=== PATIENT | male | born 1990 | race Hispanic/Latino ===

== ENCOUNTER 2018-09-05 09:50 | Emergency (ER) | payer OTHER, SELFPAY ==
[2018-09-05] MEDS ORDERED: NA CHLORIDE 0.9% 1,000 ML ONE (10:40)
[2018-09-05] MEDS ORDERED: ONDANSETRON 4 MG/2 ML VIAL ONE (10:40)
[2018-09-05 10:58] LABS: Absolute Lymphocytes (CBC) 1.2 K/uL (0.7-4.9); Absolute Monocytes 0.8 K/uL (0.1-1.3); Absolute Neutrophil 4.9 K/uL (1.8-8.0); Basophils % 0.3 % (0-1.3); Lymphocytes % 17.4 % (15.3-44.8); MPV 10.3 fL (7.6-11.3); Monocytes % 10.9 % (3.3-12.3); RBC Red Blood Cell Count 5.34 M/uL (4.33-5.43)
[2018-09-05 11:12] LABS: Albumin 3.8 g/dL (3.4-5.0); Bilirubin Direct 0.2 mg/dL (0-0.2); Bilirubin Total 0.7 mg/dL (0.2-1.0); Potassium 3.5 mmol/L (3.5-5.1); Protein, Total 7.4 g/dL (6.4-8.2)
--- NOTE | 2018-09-05 12:14 | RAD REPORT ---
EXAM DESCRIPTION: CT - Abdomen Pelvis W Contrast - 09/05/2018 11:44 am CLINICAL HISTORY: Persistent lower abdominal pain COMPARISON: None. TECHNIQUE: Biphasic, helical CT imaging of the abdomen and pelvis was performed following 100 ml non -ionic IV contrast. Oral contrast was given. All CT scans are performed using dose optimization technique as appropriate and may include automated exposure control or mA/KV adjustment according to patient size. FINDINGS: No suspicious findings in the lung bases. The liver, spleen, and pancreas show no suspicious findings. Gallbladder and biliary tree are also wi thout suspicious finding. Symmetric renal function is seen with no hydronephrosis or suspicious renal mass. No pyelonephritis o r acute parenchymal process. No bladder abnormalities. No adrenal abnormalities. No dilated bowel loops or bowel wall thickening. Appendix is normal. No free air, free fluid or infla mmatory stranding. No hernia, mass or bulky lymphadenopathy. No suspicious bony findings. IMPRESSION: Contrast enhanced CT abdomen and pelvis showing no significant or suspicious finding.
[2018-09-05 12:48] LABS: Urine Blood NEGATIVE (NEG); Urine Glucose NEGATIVE (NEG); Urine Protein NEGATIVE (NEG); Urine Specific Gravity <1.005 (1.005-1.030); Urine pH 5.5 (5.0-7.0)
--- NOTE | 2018-09-05 13:03 | ER ---
Nurse's Notes [facility] Name: Uriel Naranjo Age: 28 yrs Sex: Male : 1990 Arrival Date: 09/05/2018 Time: 09:52 Bed 5 Private MD: Diagnosis: Vomiting;Diarrhea, unspecified Presentation: 09/05 10:03 Presenting complaint: Patient states: abd cramping, N/V/D x 6 days. Pt states, "I think ss I've got food poisoning. I've had it before, but it's never lasted this long.". Transition of care: patient was not received from another setting of care. Onset of symptoms was August 30, 2018. Risk Assessment: Do you want to hurt yourself or someone else? Patient reports no desire to harm self or others. Initial Sepsis Screen: Does the patient meet any 2 criteria? No. Patient's initial sepsis screen is negative. Does the patient have a suspected source of infection? No. Patient's initial sepsis screen is negative. Care prior to arrival: None. 10:03 Method Of Arrival: Ambulatory ss 10:03 Acuity: CLAUDIA 3 ss Historical: - Allergies: 10:05 No Known Allergies; ss - Home Meds: 10:05 None [Active]; ss - PMHx: 10:05 None; ss - PSHx: 10:05 None; ss - Immunization history:: Adult Immunizations up to date. - Social history:: Smoking status: Patient/guardian denies using tobacco. - Ebola Screening: : Patient denies exposure to infectious person Patient denies travel to an Ebola-affected area in the 21 days before illness onset. Screenin:39 Abuse screen: Denies threats or abuse. Denies injuries from another. Nutritional hb screening: No deficits noted. Tuberculosis screening: No symptoms or risk factors identified. Fall Risk None identified. Assessment: 10:39 General: Appears in no apparent distress. Behavior is calm, cooperative. Pain: Pain hb currently is 7 out of 10 on a pain scale. Neuro: Level of Consciousness is awake, alert, obeys commands, Oriented to person, place, time, situation. Cardiovascular: Heart tones S1 S2 present Capillary refill < 3 seconds Patient's skin is warm and dry. Respiratory: Airway is patent Trachea midline Respiratory effort is even, unlabored, Respiratory pattern is regular, symmetrical, Breath sounds are clear bilaterally. GI: Abdomen is non-distended, Bowel sounds present X 4 quads. Reports lower abdominal pain, upper abdominal pain, nausea. : No signs and/or symptoms were reported regarding the genitourinary system. EENT: No signs and/or symptoms were reported regarding the EENT system. Derm: Skin is intact, is healthy with good turgor, Skin is pink, warm \\T\\ dry. Musculoskeletal: No signs and/or symptoms reported regarding the musculoskeletal system. 11:30 Reassessment: Patient appears in no apparent distress at this time. Patient and/or hb family updated on plan of care and expected duration. Pain level reassessed. Patient is alert, oriented x 3, equal unlabored respirations, skin warm/dry/pink. Vital Signs: 10:05 BP 166 / 113; Pulse 82; Resp 16; Temp 99.0(O); Pulse Ox 100% on R/A; Weight 95.25 kg; ss Height 5 ft. 9 in. (175.26 cm); Pain 7/10; 10:05 Body Mass Index 31.01 (95.25 kg, 175.26 cm) ED Course: 09:52 Patient arrived in ED. as 10:02 Lucien Saucedo PA is PHCP. jmm 10:02 Abiodun Whatley MD is Attending Physician. jm 10:04 Triage completed. ss 10:05 Arm band placed on right wrist. ss 10:25 Kaylen Herrera, RN is Primary Nurse. hb 10:39 Patient has correct armband on for positive identification. Placed in gown. Bed in low hb position. Call light in reach. Side rails up X 1. 10:39 Inserted saline lock: 20 gauge in right forearm, using aseptic technique. Blood hb collected. 11:45 CT Abd/Pelvis - W/Contrast In Process Unspecified. EDMS 13:01 Kevin Salgado MD is Referral Physician. [facility] 13:35 No provider procedures requiring assistance completed. IV discontinued, intact, hb bleeding controlled, No redness/swelling at site. Pressure dressing applied. Administered Medications: 10:38 Drug: NS 0.9% 1000 ml Route: IV; Rate: 1 bolus; Site: right forearm; hb 11:47 Follow up: Response: No adverse reaction; IV Status: Completed infusion hb 10:38 Drug: Zofran 4 mg Route: IVP; Site: right forearm; hb 11:20 Follow up: Response: No adverse reaction hb Outcome: 13:02 Discharge ordered by MD. campos 13:35 Discharged to home ambulatory. hb 13:35 Condition: stable 13:35 Discharge instructions given to patient, Instructed on discharge instructions, follow up and referral plans. medication usage, Demonstrated understanding of instructions, follow-up care, medications, Prescriptions given X 2. 13:36 Patient left the ED. hb Signatures: Dispatcher [employer] EDMS Lucien Saucedo PA PA jmm Martinez, Amelia as Smirch, Shelby, RN RN Kaylen Hernandez RN RN hb
--- NOTE | 2018-09-05 13:03 | EDPHYS ---
Physician Documentation [facility] Name: Uriel Naranjo Age: 28 yrs Sex: Male : 1990 Arrival Date: 09/05/2018 Time: 09:52 Bed 5 Private MD: ED Physician Abiodun Whatley HPI: 09/05 10:26 This 28 yrs old Male presents to ER via Ambulatory with complaints of jmm Nausea/Vomiting/Diarrhea, Abdominal Pain. 10:26 The patient presents to the emergency department with nausea, vomiting, diarrhea, jmm abdominal pain. Onset: The symptoms/episode began/occurred gradually, 5 day(s) ago. Possible causes: bad food exposure, street tacos. The symptoms are aggravated by nothing. The symptoms are alleviated by nothing. Associated signs and symptoms: Pertinent positives: abdominal pain, diarrhea, nausea, vomiting. Patient denies pmh or surgical history. Historical: - Allergies: 10:05 No Known Allergies; ss - Home Meds: 10:05 None [Active]; ss - PMHx: 10:05 None; ss - PSHx: 10:05 None; ss - Immunization history:: Adult Immunizations up to date. - Social history:: Smoking status: Patient/guardian denies using tobacco. - Ebola Screening: : Patient denies exposure to infectious person Patient denies travel to an Ebola-affected area in the 21 days before illness onset. ROS: 10:26 Constitutional: Negative for fever, chills, and weight loss, Cardiovascular: Negative jmm for chest pain, palpitations, and edema, Respiratory: Negative for shortness of breath, cough, wheezing, and pleuritic chest pain. 10:26 Abdomen/GI: Positive for abdominal pain, nausea and vomiting, diarrhea. 10:26 All other systems are negative. Exam: 10:26 Constitutional: This is a well developed, well nourished patient who is awake, alert, jmm and in no acute distress. Head/Face: atraumatic. Eyes: EOMI, no conjunctival erythema appreciated ENT: Moist Mucus Membranes Neck: Trachea midline, Supple Chest/axilla: Normal chest wall appearance and motion. Cardiovascular: Regular rate and rhythm. No edema appreciated Respiratory: Normal respirations, no respiratory distress appreciated 10:26 Abdomen/GI: Inspection: abdomen appears normal, Bowel sounds: normal, Palpation: soft, mild abdominal tenderness, in the left lower quadrant. 10:26 Back: ROM is normal. 10:26 Musculoskeletal/extremity: ROM: intact in all extremities. 10:26 Skin: Appearance: Color: normal in color. 10:26 Neuro: Orientation: is normal, Mentation: is normal, Memory: is normal. 10:26 Psych: Behavior/mood is pleasant, cooperative. Vital Signs: 10:05 BP 166 / 113; Pulse 82; Resp 16; Temp 99.0(O); Pulse Ox 100% on R/A; Weight 95.25 kg; ss Height 5 ft. 9 in. (175.26 cm); Pain 7/10; 10:05 Body Mass Index 31.01 (95.25 kg, 175.26 cm) ss MDM: 10:23 Patient medically screened. [facility] 13:00 Data reviewed: vital signs, nurses notes. Counseling: I had a detailed discussion with beth the patient and/or guardian regarding: the historical points, exam findings, and any diagnostic results supporting the discharge/admit diagnosis, lab results, radiology results, the need for outpatient follow up, to return to the emergency department if symptoms worsen or persist or if there are any questions or concerns that arise at home. ED course: Patient is alert and non toxic in appearance in the ED. i discussed with the patient the need to follow up with GI for further evaluation. Patient given early appendicitis return precautions. Patient can tolerate PO in the ED. . 09/05 10:24 Order name: Basic Metabolic Panel [facility] 09/05 10:24 Order name: CBC with Diff [facility] 09/05 10:24 Order name: Creatinine for Radiology; Complete Time: 11:27 [facility] 09/05 10:24 Order name: Hepatic Function [facility] 09/05 10:24 Order name: Lipase [facility] 09/05 10:24 Order name: Basic Metabolic Panel; Complete Time: 11:27 [facility] 09/05 10:24 Order name: IV Saline Lock; Complete Time: 10:39 [facility] 09/05 10:24 Order name: CT Abd/Pelvis - W/Contrast; Complete Time: 12:32 [facility] 09/05 10:24 Order name: CBC with Automated Diff; Complete Time: 11:27 [facility] 09/05 10:24 Order name: Liver (Hepatic) Function; Complete Time: 11:27 [facility] 09/05 10:24 Order name: Lipase; Complete Time: 11:27 [facility] 09/05 12:34 Order name: Urine Dipstick--Ancillary (enter results); Complete Time: 13:56 em1 09/05 10:24 Order name: Labs collected and sent; Complete Time: 10:39 [facility] 09/05 10:24 Order name: Urine Dipstick-Ancillary (obtain specimen); Complete Time: 12:34 [facility] 09/05 12:33 Order name: PO challenge; Complete Time: 12:45 [facility] Administered Medications: 10:38 Drug: NS 0.9% 1000 ml Route: IV; Rate: 1 bolus; Site: right forearm; hb 11:47 Follow up: Response: No adverse reaction; IV Status: Completed infusion hb 10:38 Drug: Zofran 4 mg Route: IVP; Site: right forearm; hb 11:20 Follow up: Response: No adverse reaction hb Disposition: 09/05/18 13:02 Discharged to Home. Impression: Vomiting, Diarrhea, unspecified. - Condition is Stable. - Discharge Instructions: Diarrhea, Adult, Nausea and Vomiting, Adult. - Prescriptions for Zofran ODT 4 mg Oral tablet,disintegrating - place 1 tablet by TRANSLINGUAL route every 4-6 hours; 20 tablet. Bentyl 20 mg Oral Tablet - take 1 tablet by ORAL route every 6 hours As needed; 20 tablet. - Medication Reconciliation Form, Thank You Letter, Antibiotic Education, Prescription Opioid Use, Work release form form. - Follow up: Kevin Salgado MD; When: 2 - 3 days; Reason: Recheck today's complaints, Continuance of care, Re-evaluation by your physician. Addendum: 09/06/2018 19:04 Co-signature as Attending Physician, Abiodun Whatley MD I agree with the assessment and k dr plan of care. Signatures: Dispatcher [employer] [facility] Abiodun Whatley MD MD kdr Mickail, Joel, PA PA [facility] Bonnie Carrera RN RN ss Baxter, Heather, RN RN Corrections: (The following items were deleted from the chart) 09/05 13:36 13:02 09/05/2018 13:02 Discharged to Home. Impression: Vomiting; Diarrhea, unspecified. hb Condition is Stable. Forms are Medication Reconciliation Form, Thank You Letter, Antibiotic Education, Prescription Opioid Use. Follow up: Kevin Salgado; When: 2 - 3 days; Reason: Recheck today's complaints, Continuance of care, Re-evaluation by your physician. beth
== END 2018-09-05 13:36 | disposition home or self-care (01) ==
LOC: ER 09:50
DX: R19.7 Diarrhea, unspecified (principal)
CPT/HCPCS: 36415; 74177; 80048; 80076; 81003; 83690; 85025; 96361; 96374; 99284; J2405; J7030; Q9967

== ENCOUNTER 2020-01-18 21:38 | Emergency (ER) | payer OTHER ==
[2020-01-18 23:14] LABS: Urine Blood NEGATIVE (NEG); Urine Glucose NEGATIVE (NEG); Urine Protein NEGATIVE (NEG); Urine Specific Gravity 1.025 (1.005-1.030); Urine pH 7.5 (5.0-7.0)
--- NOTE | 2020-01-18 23:36 | ER ---
Nurse's Notes [facility] Name: Uriel Naranjo Age: 29 yrs Sex: Male : 1990 Arrival Date: 01/18/2020 Time: 21:43 Bed 11 Private MD: Diagnosis: Hydrocele, unspecified Presentation: 01/17 22:01 Chief complaint: Patient states: R testicular pain, intermittent x 5 days. Today, is ca1 worst. Denies swelling. Reports a little tenderness to touch. Coronavirus screen: Proceed with normal triage. Patient denies a cough. Patient denies shortness of breath or difficulty breathing. Patient denies measured and/or subjective temperature greater than 100.4F prior to today's visit. Patient denies travel on a cruise ship or to a country the [facility] currently lists as an affected area. Patient denies contact with known and/or suspected case of COVID-19. Ebola Screen: Patient negative for fever greater than or equal to 101.5 degrees Fahrenheit, and additional compatible Ebola Virus Disease symptoms Patient denies exposure to infectious person. Patient denies travel to an Ebola-affected area in the 21 days before illness onset. No symptoms or risks identified at this time. Initial Sepsis Screen: Does the patient meet any 2 criteria? No. Patient's initial sepsis screen is negative. Does the patient have a suspected source of infection? No. Patient's initial sepsis screen is negative. Risk Assessment: Do you want to hurt yourself or someone else? Patient reports no desire to harm self or others. Onset of symptoms was January 18, 2020. 22:01 Method Of Arrival: Ambulatory ca1 22:01 Acuity: CLAUDIA 4 ca1 Historical: - Allergies: 22:05 No Known Allergies; ca1 - Home Meds: 22:05 None [Active]; ca1 - PMHx: 22:05 None; ca1 - PSHx: 22:05 None; ca1 - Immunization history:: Adult Immunizations up to date. - Social history:: Smoking status: Patient reports the use of cigarette tobacco products, denies chronic smoking, but will smoke occasionally. Vital Signs: 22:01 BP 143 / 96; Pulse 78; Resp 15 S; Temp 98.8(TE); Pulse Ox 100% on R/A; Weight 104.33 kg ca1 (R); Height 5 ft. 11 in. (180.34 cm) (R); Pain 10; 22:01 Body Mass Index 32.08 (104.33 kg, 180.34 cm) ca1 ED Course: 21:43 Patient arrived in ED. ds1 22:04 Triage completed. ca1 22:05 Arm band placed on right wrist. ca1 22:35 US Scrotum Testicles In Process Unspecified. EDMS 22:36 Ultrasound completed. Patient tolerated well. sg3 22:56 Ultrasound completed. Notified MONTESSORI TODDLER TEACHER/PA ian. sg3 23:12 Uriel Masters, RN is Primary Nurse. sg 23:14 Justin Reyes MD is Attending Physician. tw4 23:35 Bryant Mendiola MD is Referral Physician. tw4 23:35 Evan Mendez MD is Referral Physician. tw4 Administered Medications: 23:40 Drug: Ibuprofen 800 mg Route: PO; sg Outcome: 23:35 Discharge ordered by MD. tw4 23:48 Patient left the ED. sg Signatures: Dispatcher [employer] EDLA Uriel Masters, RN RN sg Izabella Donis ds1 Ana Rosa Verduzco sg3 Justin Reyes MD MD tw4 Clementina Leahy RN RN ca1 Corrections: (The following items were deleted from the chart) 22:05 22:01 Acuity: CLAUDIA 3 ca1 ca1 22:56 22:37 Ultrasound completed. sg3 sg3 22:56 22:37 Notified MONTESSORI TODDLER TEACHER/PA . sg3 sg3
--- NOTE | 2020-01-18 23:36 | EDPHYS ---
Physician Documentation [facility] Name: Uriel Naranjo Age: 29 yrs Sex: Male : 1990 Arrival Date: 01/18/2020 Time: 21:43 Bed 11 Private MD: ED Physician Justin Reyes HPI: 01/18 03:42 This 29 yrs old Male presents to ER via Ambulatory with complaints of tw4 Testicular Pain - R. Historical: - Allergies: 01/17 22:05 No Known Allergies; ca1 - Home Meds: 22:05 None [Active]; ca1 - PMHx: 22:05 None; ca1 - PSHx: 22:05 None; ca1 - Immunization history:: Adult Immunizations up to date. - Social history:: Smoking status: Patient reports the use of cigarette tobacco products, denies chronic smoking, but will smoke occasionally. ROS: 01/18 03:53 Constitutional: Negative for fever, chills, and weight loss, Eyes: Negative for injury, tw4 pain, redness, and discharge, ENT: Negative for injury, pain, and discharge, Cardiovascular: Negative for chest pain, palpitations, and edema, Respiratory: Negative for shortness of breath, cough, wheezing, and pleuritic chest pain, Abdomen/GI: Negative for abdominal pain, nausea, vomiting, diarrhea, and constipation. MS/Extremity: Negative for injury and deformity, Skin: Negative for injury, rash, and discoloration, Neuro: Negative for headache, weakness, numbness, tingling, and seizure. : Positive for testicular pain Exam: 03:53 Constitutional: This is a well developed, well nourished patient who is awake, alert, tw4 and in no acute distress. Head/Face: Normocephalic, atraumatic. Chest/axilla: Normal chest wall appearance and motion. Nontender with no deformity. No lesions are appreciated. Cardiovascular: Regular rate and rhythm with a normal S1 and S2. No gallops, murmurs, or rubs. Normal PMI, no JVD. No pulse deficits. Respiratory: Lungs have equal breath sounds bilaterally, clear to auscultation and percussion. No rales, rhonchi or wheezes noted. No increased work of breathing, no retractions or nasal flaring. Abdomen/GI: Soft, non-tender, with normal bowel sounds. No distension or tympany. No guarding or rebound. No evidence of tenderness throughout. 03:53 : Male external genitalia: tenderness, of the right testicle is noted. Vital Signs: 01/17 22:01 BP 143 / 96; Pulse 78; Resp 15 S; Temp 98.8(TE); Pulse Ox 100% on R/A; Weight 104.33 kg ca1 (R); Height 5 ft. 11 in. (180.34 cm) (R); Pain 6/10; 22:01 Body Mass Index 32.08 (104.33 kg, 180.34 cm) ca1 MDM: 23:14 Patient medically screened. tw4 01/18 03:53 Differential diagnosis: nonspecific abdominal pain, appendicitis. Data reviewed: vital tw4 signs, nurses notes. Data reviewed: lab test result(s), urinalysis, radiologic studies, ultrasound. Data interpreted: Pulse oximetry: Interpretation:. Counseling: I had a detailed discussion with the patient and/or guardian regarding: the historical points, exam findings, and any diagnostic results supporting the discharge/admit diagnosis, lab results, radiology results. Medication response: ibuprofen administration has improved the patient's pain. Response to treatment: and as a result, I will discharge patient. Special discussion: I discussed with the patient/guardian in detail that at this point there is no indication for admission to the hospital. It is understood, however, that if the symptoms persist or worsen the patient needs to return immediately for re-evaluation. 01/17 22:47 Order name: Urine Dipstick--Ancillary (enter results); Complete Time: 23:15 tt3 01/17 22:09 Order name: US Scrotum Testicles ca1 01/17 22:09 Order name: Urine Dipstick-Ancillary (obtain specimen); Complete Time: 23:12 ca1 Administered Medications: 01/17 23:40 Drug: Ibuprofen 800 mg Route: PO; sg Disposition: 01/18/20 23:35 Discharged to Home. Impression: Hydrocele, unspecified. - Condition is Stable. - Discharge Instructions: Testicular Self-Exam, Scrotal Masses, Hydrocele, Adult. - Prescriptions for Ibuprofen 800 mg Oral Tablet - take 1 tablet by ORAL route every 8 hours As needed take with food; 30 tablet. - Work release form, Medication Reconciliation Form, Thank You Letter, Antibiotic Education, Prescription Opioid Use form. - Follow up: Private Physician; When: Upon discharge from the Emergency Department; Reason: Recheck today's complaints, Continuance of care, Re-evaluation by your physician. Follow up: Bryant Mendiola MD; When: Upon discharge from the Emergency Department; Reason: Recheck today's complaints, Continuance of care, Re-evaluation by your physician. Follow up: Evan Mendez MD; When: Upon discharge from the Emergency Department; Reason: Recheck today's complaints, Continuance of care, Re-evaluation by your physician. - Problem is new. - Symptoms have improved. Signatures: Dispatcher [employer] EDMS Uriel Masters RN RN sg Justin Reyes MD MD tw4 Clementina Leahy RN RN ca1 Corrections: (The following items were deleted from the chart) 23:48 23:35 01/18/2020 23:35 Discharged to Home. Impression: Hydrocele, unspecified. sg Condition is Stable. Forms are Medication Reconciliation Form, Thank You Letter, Antibiotic Education, Prescription Opioid Use. Follow up: Private Physician; When: Upon discharge from the Emergency Department; Reason: Recheck today's complaints, Continuance of care, Re-evaluation by your physician. Follow up: Bryant Mendiola; When: Upon discharge from the Emergency Department; Reason: Recheck today's complaints, Continuance of care, Re-evaluation by your physician. Follow up: Evan Mendez; When: Upon discharge from the Emergency Department; Reason: Recheck today's complaints, Continuance of care, Re-evaluation by your physician. Problem is new. Symptoms have improved. tw4
[2020-01-18 23:55] VITALS: BP 143/96; TEMP 98.8; O2SAT 100
--- NOTE | 2020-01-19 08:35 | RAD REPORT ---
EXAM DESCRIPTION: US - Scrotum Testicles - 01/18/2020 10:35 pm CLINICAL HISTORY: Testicular pain COMPARISON: 2015 FINDINGS: Right testicle measures 4.2 x 2.1 x 3 centimeters. Echotexture is homogeneous. Normal bloo d flow Left testicle measures 4.4 x 2.4 x 3 centimeters. Echotexture is homogeneous. Normal blood flow The epididymides are normal in size and echotexture. Normal blood flow is seen. Small right hydrocele IMPRESSION: Small right hydrocele
== END 2020-01-18 23:48 | disposition home or self-care (01) ==
LOC: ER 21:38
DX: N43.3 Hydrocele, unspecified (principal); F17.210 Nicotine dependence, cigarettes, uncomplicated
CPT/HCPCS: 76870; 81003; 99283

== ENCOUNTER 2022-09-14 04:15 | Emergency (ER) | payer OTHER ==
[2022-09-14 05:13] LABS: Absolute Lymphocytes (CBC) 2.3 K/uL (0.7-4.9); Hematocrit 42.7 % (39.6-49.0); MCV 86.9 fL (80-100); MPV 9.3 fL (7.6-11.3); RBC Red Blood Cell Count 4.91 M/uL (4.33-5.43)
[2022-09-14 05:32] LABS: Potassium 3.5 mmol/L (3.5-5.1); Troponin High Sensitivity 6.6 pg/mL (<58.9)
--- NOTE | 2022-09-14 15:06 | RAD REPORT ---
EXAM DESCRIPTION: RAD - Chest Single View - 09/14/2022 4:47 am CLINICAL HISTORY: CHEST PAIN COMPARISON: None. FINDINGS: Single frontal radiograph view of the chest. Cardiomediastinal silhouette: Normal size and contour. Lungs: No consolidation, pneumothorax, or pleural effusion. Bones: No acute osseous abnormality. Leads overlie the chest. Upper abdomen: No abnormality identified. IMPRESS IMPRESSION: 1. No acute pulmonary process identified. Electronically signed by: Paco Her 09/14/2022 4:56 AM HEDDLER Due to temporary technical issues with the PACS/Fluency reporting system, reports are being signed by the in house radiologists without review as a courtesy to insure prompt reporting. The interpreting radiologist is fully responsible for the content of the report.
--- NOTE | 2022-09-18 13:19 | EKG ---
Test Date: 2022-09-14 Test Time: 04:38:00 Cuffing Machine Operator: PHANI MEASUREMENT RESULTS: Intervals: Rate: 62 TN: 176 QRSD: 96 QT: 396 QTc: 401 [place]: P: 45 TN: 176 QRS: 41 T: 18 INTERPRETIVE STATEMENTS: Normal sinus rhythm Normal ECG No previous ECG available for comparison Electronically Signed On 09-18-22 13:10:02 CDT by Rodrigo Moore
--- NOTE | 2022-09-29 15:28 | EDPHYS ---
Physician Documentation [facility] Name: Uriel Naranjo Age: 32 yrs Sex: Male : 1990 Arrival Date: 09/14/2022 Time: 04:17 Bed 6 Private MD: ED Physician Krishna Hummel HPI: 09/14 04:43 This 32 yrs old Male presents to ER via Unassigned with complaints of Chest bs3 Pain. 04:43 32-year-old male history of hypertension on amlodipine presents with chest pain for 1 bs3 week nonexertional he notes that it comes and goes usually lasting 30 to 40 seconds at a time it is retrosternal nonradiating not associated with numbness tingling or weakness in his extremities it does not radiate to his back its not ripping or tearing he notes that this morning he woke up and had the pain and then developed an episode of nauseous nests and then vomited and got concerned and therefore came in he notes multiple stressors in his life and he is very concerned that this could be his heart he denies any use current symptoms any recent travel or anything else bothering him. Historical: - Allergies: 04:43 No Known Allergies; as6 - Home Meds: 04:43 amlodipine 5 mg tablet 1 tab daily [Active]; as6 - PMHx: 04:43 Hypertensive disorder; as6 - PSHx: 04:43 back; as6 - Immunization history:: Client reports receiving the 2nd dose of the Covid vaccine, moderna. - Social history:: Smoking status: Patient reports the use of cigarette tobacco products, denies chronic smoking, but will smoke occasionally. ROS: 04:43 Constitutional: Negative for fever, chills bs3 04:43 All other systems are negative. Exam: 04:43 Constitutional: This is a well developed, well nourished patient who is awake, alert, bs3 and in no acute distress. Head/Face: Normocephalic, atraumatic. Eyes: Pupils equal round and reactive to light, extra-ocular motions intact. Lids and lashes normal. Neck: Trachea midline, no thyromegaly, no neck stiffness Chest/axilla: Normal chest wall appearance and motion. Nontender with no deformity. No lesions are appreciated. Cardiovascular: Regular rate and rhythm with a normal S1 and S2. symmetric pulses in upper extremities Respiratory: Lungs have equal breath sounds bilaterally, clear to auscultation, no respiratory distress Abdomen/GI: Soft, non-tender, no rebound or guarding MS/ Extremity: Pulses equal, no cyanosis. Neurovascular intact. Full, normal range of motion. Neuro: Awake and alert, GCS 15, oriented to person, place, time, and situation. Cranial nerves II-XII grossly intact. Motor strength 5/5 in all extremities. Sensory grossly intact. Psych: Awake, alert, with orientation to person, place and time. Behavior, mood, and affect are within normal limits. 04:43 Cardiovascular: Regular rate no murmur normal symmetric pulses 04:43 Normal sinus rhythm at [address] elevations or depressions QTc 401 as interpreted by myself Vital Signs: 04:42 BP 155 / 103; Pulse 68; Resp 13 S; Temp 98.4(O); Pulse Ox 99% on R/A; Weight 108.86 kg as6 (R); Height 5 ft. 11 in. (R); Pain 6/10; 06:22 BP 147 / 95; Pulse 69; Resp 16; Pulse Ox 100% ; vc1 04:42 Body Mass Index 33.47 (108.86 kg, 180.34 cm) as6 04:42 Pain Scale: Adult as6 MDM: 04:25 Patient medically screened. bs3 04:43 Differential diagnosis: acute myocardial infarction, acute pericarditis, anxiety, chest bs3 wall pain, pericarditis, pulmonary embolus, thoracic aortic disection, unstable angina. HEART Score: History: Slightly Suspicious (0), ECG: Normal (0), Age: < or = 45 years (0), Risk Factors: 1 or 2 risk factors (1), Troponin: < or = 1 x Normal Limit (0), Total Score = 1. Data reviewed: vital signs, nurses notes, EKG. ED course: Consider dissection but he has no current pain it was not ripping or tearing he has no associated neuro symptoms that does not radiate anywhere he is PE RC negative given 1 week of pain will rule out acute coronary syndrome with 1 troponin his EKG is normal will rule out pneumothorax he notes multiple stressors in his life over the last several months which are weighing on him. 05:24 Independent interpretation of the following test(s) in the Emergency Department EKG: bs3 See my EKG interpretation above X-Ray: My interpretation is No acute cardiopulmonary disease as interpreted by myself. 05:24 Independent interpretation of the following test(s) in the Emergency Department Cardiac bs3 monitor: Normal sinus rhythm at 69 no arrhythmia. 06:05 ED course: Work-up negative troponin less than cutoff given symptom duration of 1 week bs3 not consistent with acute coronary syndrome advised outpatient follow-up. 09/14 04:31 Order name: Basic Metabolic Panel; Complete Time: 06:05 bs3 09/14 04:31 Order name: CBC with Diff; Complete Time: 05:22 bs3 09/14 04:31 Order name: Troponin HS; Complete Time: 06:05 bs3 09/14 04:31 Order name: XRAY Chest (1 view) bs3 09/14 04:31 Order name: EKG; Complete Time: 04:32 bs3 09/14 04:31 Order name: Cardiac monitoring; Complete Time: 04:42 bs3 09/14 04:31 Order name: EKG - Nurse/Tech; Complete Time: 04:42 bs3 09/14 04:31 Order name: Labs collected and sent; Complete Time: 05:02 bs3 09/14 04:31 Order name: O2 Per Protocol; Complete Time: 04:42 bs3 09/14 04:31 Order name: O2 Sat Monitoring; Complete Time: 04:42 bs3 Administered Medications: No medications were administered Disposition Summary: 09/14/22 06:09 Discharge Ordered Location: Home bs3 Problem: an ongoing problem bs3 Symptoms: have improved bs3 Condition: Stable bs3 Diagnosis - Chest pain, unspecified bs3 Followup: bs3 - With: Private Physician - When: 48 Hours - Reason: Re-evaluation by your physician Discharge Instructions: - Discharge Summary Sheet bs3 - Nonspecific Chest Pain, Adult bs3 Forms: - Work release form bs3 - Medication Reconciliation Form bs3 - Thank You Letter bs3 - Antibiotic Education bs3 - Prescription Opioid Use bs3 Signatures: Dispatcher [employer] Jeff Penn RN RN as6 Krishna Hummel MD MD bs3
--- NOTE | 2022-09-29 15:28 | ER ---
Nurse's Notes [facility] Name: Uriel Naranjo Age: 32 yrs Sex: Male : 1990 Arrival Date: 09/14/2022 Time: 04:17 Bed 6 Private MD: Diagnosis: Chest pain, unspecified Presentation: 09/14 04:43 Chief complaint: Patient states: "I've been having chest pain off and on for a few days as6 but tonight it woke me up from my sleep. It might just be stress. I've had a lot going on". Coronavirus screen: At this time, the client does not indicate any symptoms associated with coronavirus-19. Ebola Screen: No symptoms or risks identified at this time. Initial Sepsis Screen: Does the patient meet any 2 criteria? No. Patient's initial sepsis screen is negative. Does the patient have a suspected source of infection? No. Patient's initial sepsis screen is negative. Risk Assessment: Do you want to hurt yourself or someone else? Patient reports no desire to harm self or others. Onset of symptoms was September 12, 2022. 04:43 Acuity: CLAUDIA 3 as6 04:43 Method Of Arrival: Ambulatory as6 Historical: - Allergies: 04:43 No Known Allergies; as6 - Home Meds: 04:43 amlodipine 5 mg tablet 1 tab daily [Active]; as6 - PMHx: 04:43 Hypertensive disorder; as6 - PSHx: 04:43 back; as6 - Immunization history:: Client reports receiving the 2nd dose of the Covid vaccine, moderna. - Social history:: Smoking status: Patient reports the use of cigarette tobacco products, denies chronic smoking, but will smoke occasionally. Screenin:04 [facility] ED Fall Risk Assessment (Adult) History of falling in the last 3 months, as6 including since admission Score/Fall Risk Level 0 - 2 = Low Risk. Abuse screen: Denies threats or abuse. Denies injuries from another. Nutritional screening: No deficits noted. Tuberculosis screening: No symptoms or risk factors identified. Assessment: 05:03 General: Appears uncomfortable, Behavior is cooperative, anxious. Pain: Complains of as6 pain in chest. Cardiovascular: Reports chest pain, Capillary refill < 3 seconds Patient's skin is warm and dry. Respiratory: Respiratory effort is even, unlabored. Vital Signs: 04:42 BP 155 / 103; Pulse 68; Resp 13 S; Temp 98.4(O); Pulse Ox 99% on R/A; Weight 108.86 kg as6 (R); Height 5 ft. 11 in. (R); Pain 6/10; 06:22 BP 147 / 95; Pulse 69; Resp 16; Pulse Ox 100% ; vc1 04:42 Body Mass Index 33.47 (108.86 kg, 180.34 cm) as6 04:42 Pain Scale: Adult as6 ED Course: 04:17 Patient arrived in ED. ag3 04:26 Jeff Fam, RN is Primary Nurse. as6 04:28 Krishna Hummel MD is Attending Physician. bs3 04:42 Arm band placed on. as6 04:45 Triage completed. as6 04:49 XRAY Chest (1 view) In Process Unspecified. EDMS 05:04 Placed in gown. Bed in low position. Call light in reach. Side rails up X2. as6 06:22 No provider procedures requiring assistance completed. Patient did not have IV access vc1 during this emergency room visit. Administered Medications: No medications were administered Medication: 05:04 VIS not applicable for this client. as6 Outcome: 06:09 Discharge ordered by . bs3 06:22 Discharged to home ambulatory. vc1 06:22 Condition: good 06:22 Discharge instructions given to patient, Instructed on discharge instructions, follow up and referral plans. Demonstrated understanding of instructions, follow-up care. 06:23 Patient left the ED. vc1 Signatures: Dispatcher [employer] EDME Nichole Arango 3 Jeff Fam, ADDISON RN as6 Leigh Mckeon RN RN vc1 Krishna Hummel MD MD bs3
== END 2022-09-14 06:23 | disposition home or self-care (01) ==
LOC: ER 04:15
DX: R07.89 Other chest pain (principal); I10 Essential (primary) hypertension; F17.210 Nicotine dependence, cigarettes, uncomplicated
CPT/HCPCS: 36415; 71045; 80048; 84484; 85025; 93005; 99283

== ENCOUNTER 2023-05-24 15:06 | Emergency (ER) | payer OTHER ==
[2023-05-24] MEDS ORDERED: AMLODIPINE 5 MG TAB ONE (15:42)
[2023-05-24] MEDS ORDERED: HYDROCODONE/APAP 7.5/325 MG TAB ONE (15:42)
[2023-05-24] MEDS ORDERED: ONDANSETRON 4 MG (ODT) TAB ONE (15:43)
--- NOTE | 2023-05-24 16:14 | RAD REPORT ---
EXAM DESCRIPTION: CT - [id number] - 05/24/2023 3:35 pm CLINICAL HISTORY: Trauma, head and neck injury. TRAUMA COMPARISON: No comparisons TECHNIQUE: Axial thin cut noncontrast CT images of the head were obtained. Axial thin cut noncontrast CT images of the cervical spine were obtained. Multiplanar reformatted images were generated and reviewed. All CT scans are performed using dose optimization technique as appropriate and may include automated exposure control or mA/KV adjustment according to patient size. FINDINGS: CT HEAD WITHOUT CONTRAST: No acute hemorrhage, hydrocephalus or extra-axial collection is identified.No areas of brain edema or midline shift. The paranasal sinuses and mastoids are clear.The calvarium is intact. CT CERVICAL SPINE WITHOUT CONTRAST: Straightening of normal cervical lordosis. No fracture or subluxation.No prevertebral soft tissues sw elling is identified. IMPRESSION: No acute traumatic intracranial or cervical spine findings. Straightening of normal cervical lordosis which may be positional or secondary to muscle spasm.
--- NOTE | 2023-05-24 16:22 | ER ---
Nurse's Notes [facility] Name: Uriel Naranjo Age: 32 yrs Sex: Male : 1990 Arrival Date: 05/24/2023 Time: 15:06 Bed 12 Private MD: Diagnosis: Unspecified injury of head, initial encounter;Sprain of ligaments of cervical spine Presentation: 05/24 15:19 Chief complaint: Patient states: Works for [employer], was loading stacked washer and dryer ph onto jayden when dryer fell and hit him on the top of the head. No LOC, c/o headache and nausea. BP elevated in triage has not taken daily BP medication. Coronavirus screen: Vaccine status: Patient reports receiving the 2nd dose of the covid vaccine. Ebola Screen: No symptoms or risks identified at this time. Initial Sepsis Screen: Does the patient meet any 2 criteria? No. Patient's initial sepsis screen is negative. Does the patient have a suspected source of infection? No. Patient's initial sepsis screen is negative. Risk Assessment: Do you want to hurt yourself or someone else? Patient reports no desire to harm self or others. Onset of symptoms was May 24, 2023. 15:19 Method Of Arrival: Ambulatory ph 15:19 Acuity: CLAUDIA 3 ph Triage Assessment: 15:22 General: Appears in no apparent distress. Behavior is calm, cooperative. Pain: ph Complains of pain in head. Neuro: Level of Consciousness is awake, alert, obeys commands, Oriented to person, place, time, situation, Reports headache. GI: Reports nausea. Historical: - Allergies: 15:21 No Known Allergies; ph - Home Meds: 15:21 amlodipine 5 mg tablet 1 tab daily [Active]; ph - PMHx: 15:21 Hypertensive disorder; ph - PSHx: 15:21 back; ph - Immunization history:: Adult Immunizations unknown. - Social history:: Smoking status: Patient denies any tobacco usage or history of. Screenin:34 [facility] ED Fall Risk Assessment (Adult) History of falling in the last 3 months, ld1 including since admission No falls in past 3 months (0 pts). Abuse screen: Denies threats or abuse. Denies injuries from another. Nutritional screening: No deficits noted. Tuberculosis screening: No symptoms or risk factors identified. Assessment: 15:34 Reassessment: See triage assessment. ld1 15:34 General: Appears in no apparent distress. comfortable, Behavior is calm, cooperative, ld1 appropriate for age. Pain: Denies pain. Neuro: Level of Consciousness is awake, alert, obeys commands, Oriented to person, place, time, situation. Neuro: Reports dizziness. Cardiovascular: Capillary refill < 3 seconds Patient's skin is warm and dry. Respiratory: Airway is patent Respiratory effort is even, unlabored. 16:20 Reassessment: Patient appears in no apparent distress at this time. Patient and/or ld1 family updated on plan of care and expected duration. Pain level reassessed. Patient is alert, oriented x 3, equal unlabored respirations, skin warm/dry/pink. Patient states symptoms have improved. Vital Signs: 15:19 BP 165 / 112; Pulse 64; Resp 18; Temp 99.1; Pulse Ox 100% on R/A; Weight 108.86 kg; ph Height 5 ft. 11 in. ; 16:20 BP 142 / 99; ld1 15:19 Body Mass Index 33.47 (108.86 kg, 180.34 cm) ph [place] Coma Score: 15:19 Eye Response: spontaneous(4). Motor Response: obeys commands(6). Verbal Response: jh oriented(5). Total: 15. ED Course: 15:09 Patient arrived in ED. im 15:11 Nancy [facility]ascimento FNP [facility]. jh7 15:11 Abiodun Whatley MD is Attending Physician. jh7 15:21 Triage completed. ph 15:22 Arm band placed on Patient placed in an exam room. ph 15:33 Monica Blanco, ADDISON is Primary Nurse. ld1 15:34 Patient has correct armband on for positive identification. Placed in gown. Bed in low ld1 position. Call light in reach. Side rails up X2. Pulse ox on. NIBP on. Door closed. Noise minimized. Warm blanket given. 15:34 No provider procedures requiring assistance completed. ld1 15:35 CT Head C Spine In Process Unspecified. EDMS 16:29 Patient did not have IV access during this emergency room visit. ld1 Administered Medications: 15:37 Drug: Ondansetron Oral Disintegrating Tablet Oral Disintegrating Tablet 4 mg PO once ph Route: PO; 15:37 Drug: Hydrocodone-Acetaminophen PO (7.5 mg-325 mg) 1 tabs PO once Route: PO; ph 15:37 Drug: amLODIPine PO 5 mg PO once Route: PO; ph Medication: 15:34 VIS not applicable for this client. ld1 Outcome: 16:22 Discharge ordered by MD. harmon 16:29 Discharged to home ambulatory, ld1 16:29 Condition: stable 16:29 Discharge instructions given to patient, Instructed on discharge instructions, follow up and referral plans. medication usage, Demonstrated understanding of instructions, follow-up care, medications, Prescriptions given X 2, 16:29 Patient left the ED. ld1 Signatures: Dispatcher [employer] EDHoda Rodrigues RN RN Monica Blanco RN RN ld1 Nancy Nascimento FNP [employer] REP [facility] Mary Khan
--- NOTE | 2023-05-24 16:22 | EDPHYS ---
Physician Documentation [facility] Name: Uriel Naranjo Age: 32 yrs Sex: Male : 1990 Arrival Date: 05/24/2023 Time: 15:06 Bed 12 Private MD: ED Physician Abiodun Whatley HPI: 05/24 15:19 This 32 yrs old Male presents to ER via Ambulatory with complaints of Head jh7 Injury Without LOC-Adult - Hit by dryer. 15:19 The patient or guardian reports injury, pain. The complaints affect the left side of jh7 the back of head and right side of the back of head. Context of injury: The problem was sustained at work, resulted from a direct blow, a heavy object, Boxed dryer fell 4 feet and landed on the patient's posterior scalp.. Onset: The symptoms/episode began/occurred acutely. Associated signs and symptoms: Loss of consciousness: This patient did not experience any loss of consciousness. Pertinent positives: headache, nausea, neck pain, Pertinent negatives: shortness of breath, vomiting, weakness in extremities, generalized weakness. Historical: - Allergies: 15:21 No Known Allergies; ph - Home Meds: 15:21 amlodipine 5 mg tablet 1 tab daily [Active]; ph - PMHx: 15:21 Hypertensive disorder; ph - PSHx: 15:21 back; ph - Immunization history:: Adult Immunizations unknown. - Social history:: Smoking status: Patient denies any tobacco usage or history of. ROS: 15:19 Constitutional: Negative for fever, chills, and weight loss, Eyes: Negative for injury, jh7 pain, redness, and discharge, ENT: Negative for injury, pain, and discharge, Cardiovascular: Negative for chest pain, palpitations, and edema, Respiratory: Negative for shortness of breath, cough, wheezing, and pleuritic chest pain, Back: Negative for injury and pain, MS/Extremity: Negative for injury and deformity, Skin: Negative for injury, rash, and discoloration, 15:19 Neck: Positive for stiffness, Negative for tenderness, bony tenderness, 15:19 Neuro: Positive for headache, Negative for altered mental status, dizziness, gait disturbance, numbness, syncope, visual changes, 15:19 All other systems are negative, Exam: 15:19 Constitutional: This is a well developed, well nourished patient who is awake, alert, jh7 and in no acute distress. Eyes: Pupils equal round and reactive to light, extra-ocular motions intact. Lids and lashes normal. Conjunctiva and sclera are non-icteric and not injected. Cornea within normal limits. Periorbital areas with no swelling, redness, or edema. ENT: Nares patent. No nasal discharge, no septal abnormalities noted. Tympanic membranes are normal and external auditory canals are clear. Oropharynx with no redness, swelling, or masses, exudates, or evidence of obstruction, uvula midline. Mucous membranes moist. Cardiovascular: Regular rate and rhythm with a normal S1 and S2. No gallops, murmurs, or rubs. Normal PMI, no JVD. No pulse deficits. Respiratory: Lungs have equal breath sounds bilaterally, clear to auscultation and percussion. No rales, rhonchi or wheezes noted. No increased work of breathing, no retractions or nasal flaring. Back: No spinal tenderness. No costovertebral tenderness. Full range of motion. Skin: Warm, dry with normal turgor. Normal color with no rashes, no lesions, and no evidence of cellulitis. MS/ Extremity: Pulses equal, no cyanosis. Neurovascular intact. Full, normal range of motion. Neuro: Awake and alert, GCS 15, oriented to person, place, time, and situation. Cranial nerves II-XII grossly intact. Motor strength 5/5 in all extremities. Sensory grossly intact. Cerebellar exam normal. Normal gait. 15:19 Head/face: Noted is hematoma, that is mild, of the right side of the back of head and left side of the back of head, tenderness, that is mild, 15:19 Neck: External neck: is normal, C-spine: appears grossly normal, ROM/movement: pain, that is mild, with any movement, Vital Signs: 15:19 BP 165 / 112; Pulse 64; Resp 18; Temp 99.1; Pulse Ox 100% on R/A; Weight 108.86 kg; ph Height 5 ft. 11 in. ; 16:20 BP 142 / 99; ld1 15:19 Body Mass Index 33.47 (108.86 kg, 180.34 cm) ph [place] Coma Score: 15:19 Eye Response: spontaneous(4). Motor Response: obeys commands(6). Verbal Response: jh oriented(5). Total: 15. MDM: 15:18 Patient medically screened. [facility] 16:20 Differential diagnosis: Contusion of Hematoma on Intracranial bleed-. Data reviewed: [facility] vital signs, nurses notes, radiologic studies, CT scan. I considered the following discharge prescriptions or medication management in the emergency department Medications were administered in the Emergency Department. See MAR. Care significantly affected by the following chronic conditions: Hypertension. Counseling: I had a detailed discussion with the patient and/or guardian regarding the historical points, exam findings, and any diagnostic results supporting the discharge/admit diagnosis, to return to the emergency department if symptoms worsen or persist or if there are any questions or concerns that arise at home. Response to treatment: the patient's symptoms have markedly improved after treatment. 05/24 15:28 Order name: CT Head C Spine; Complete Time: 16:16 [facility] 05/24 16:17 Order name: Recheck Blood Pressure; Complete Time: 16:20 [facility] Administered Medications: 15:37 Drug: Ondansetron Oral Disintegrating Tablet Oral Disintegrating Tablet 4 mg PO once ph Route: PO; 15:37 Drug: Hydrocodone-Acetaminophen PO (7.5 mg-325 mg) 1 tabs PO once Route: PO; ph 15:37 Drug: amLODIPine PO 5 mg PO once Route: PO; ph Disposition: 17:16 Co-signature as Attending Physician, Abiodun Whatley MD I agree with the assessment and kdr plan of care. Disposition Summary: 05/24/23 16:22 Discharge Ordered Notes: Location: Home [facility] Problem: new [facility] Symptoms: have improved [facility] Condition: Stable [facility] Diagnosis - Unspecified injury of head, initial encounter 7 - Sprain of ligaments of cervical spine [facility] Followup: [facility] - With: Private Physician - When: 2 - 3 days - Reason: Recheck today's complaints Discharge Instructions: - Discharge Summary Sheet [facility] - Head Injury, Adult [facility] - Cervical Sprain [facility] Forms: - Work release form ld1 - Medication Reconciliation Form [facility] - Thank You Letter [facility] - Patient Portal Instructions [facility] - Leadership Thank You Letter [facility] Prescriptions: - Naprosyn 500 mg Oral Tablet - take 1 tablet ORAL route 2 times per day take with food; 30 tablet; Refills: 0, jh7 Product Selection Permitted - Zanaflex 4 mg Oral Tablet - take 1 tablet ORAL route every 8 hours As needed; 20 tablet; Refills: 0, jh7 Product Selection Permitted Signatures: Dispatcher [employer] EDMS Abiodun Whatley MD MD kdr Hall, Patricia, RN RN ph Azam, Nancy, COUNTER HELPER COUNTER HELPER 7 Corrections: (The following items were deleted from the chart) 15:36 15:25 Head Brain Wo [id number] ordered. EDMS EDMS
[2023-05-24 16:34] VITALS: TEMP 99.1; O2SAT 100
[2023-05-24 16:35] VITALS: BP 142/99
== END 2023-05-24 16:29 | disposition home or self-care (01) ==
LOC: ER 15:06
DX: S00.83XA Contusion of other part of head, initial encounter (principal); S13.9XXA Sprain of joints and ligaments of unspecified parts of neck, initial encounter; I10 Essential (primary) hypertension
CPT/HCPCS: 70450; 72125; 99283; Q0162

== ENCOUNTER → 2023-08-09 | Emergency (ER) | payer OTHER ==
[~2023-08-09] MED LIST: ACETAMINOPHEN 500 MG TAB ONE; AZITHROMYCIN 250 MG TAB ONE; IBUPROFEN 400 MG TAB ONE; ONDANSETRON 4 MG (ODT) TAB ONE; PROMETHAZINE 25 MG TABLET ONE
[2023-08-09 06:21] LABS: SARS-CoV-2 Antigen Rapid Res Negative (Negative)
--- NOTE | 2023-08-09 07:51 | ER ---
Nurse's Notes [facility] Name: Uriel Naranjo Age: 32 yrs Sex: Male : 1990 Arrival Date: 08/09/2023 Time: 05:42 Bed 6 Private MD: Diagnosis: Bacterial infection, unspecified;Acute tonsillitis, unspecified Presentation: 08/09 05:51 Chief complaint: Patient states: Cough, runny nose, congestion, nausea X1 day. vomiting lg3 X1 this morning. Coronavirus screen: Client denies travel out of the [place] in the last 14 days. Client presents with at least one sign or symptom that may indicate coronavirus-19. Standard/surgical mask placed on the client. Ebola Screen: No symptoms or risks identified at this time. Initial Sepsis Screen: Does the patient meet any 2 criteria? No. Patient's initial sepsis screen is negative. Does the patient have a suspected source of infection? No. Patient's initial sepsis screen is negative. Risk Assessment: Do you want to hurt yourself or someone else? Patient reports no desire to harm self or others. Onset of symptoms was August 08, 2023. 05:51 Method Of Arrival: Ambulatory lg3 05:51 Acuity: CLAUDIA 4 lg3 Triage Assessment: 05:53 General: Appears in no apparent distress. uncomfortable, Behavior is calm, cooperative. lg3 Pain: Denies pain. EENT: No deficits noted. Reports nasal congestion nasal discharge. Neuro: No deficits noted. Ponce Agitation-Sedation Scale (RASS): 0 - Alert and Calm Level of Consciousness is awake, alert, obeys commands, Oriented to person, place, time, situation. Cardiovascular: No deficits noted. Denies chest pain, shortness of breath, Capillary refill < 3 seconds Clubbing of nail beds is absent JVD is absent Patient's skin is warm and dry. Respiratory: No deficits noted. Reports cough that is Airway is patent Respiratory effort is even, unlabored, Respiratory pattern is regular, symmetrical. GI: No deficits noted. Abdomen is round non-distended, Reports nausea. : No deficits noted. No signs and/or symptoms were reported regarding the genitourinary system. Derm: No deficits noted. No signs and/or symptoms reported regarding the dermatologic system. Skin is intact, is healthy with good turgor, Skin is dry, Skin is normal, Skin temperature is warm. Musculoskeletal: No deficits noted. No signs and/or symptoms reported regarding the musculoskeletal system. Circulation, motion, and sensation intact. Range of motion: intact in all extremities. Historical: - Allergies: 05:53 No Known Allergies; lg3 - Home Meds: 05:53 amlodipine 5 mg tablet 1 tab daily [Active]; lg3 - PMHx: 05:53 Hypertensive disorder; lg3 - PSHx: 05:53 back; lg3 - Immunization history:: Adult Immunizations up to date, Client reports receiving the 2nd dose of the Covid vaccine, Flu vaccine is not up to date. - Social history:: Smoking status: Patient denies any tobacco usage or history of. Patient uses alcohol, occasionally. Patient/guardian denies using street drugs. - Family history:: not pertinent. Screenin:55 [facility] ED Fall Risk Assessment (Adult) History of falling in the last 3 months, lg3 including since admission No falls in past 3 months (0 pts). Abuse screen: Denies threats or abuse. Denies injuries from another. Nutritional screening: No deficits noted. Tuberculosis screening: No symptoms or risk factors identified. Assessment: 05:55 General: see triage assessment. lg3 06:50 Reassessment: Patient and/or family updated on plan of care and expected duration. Pain ha1 level reassessed. Patient is alert, oriented x 3, equal unlabored respirations, skin warm/dry/pink. 07:44 Reassessment: PATIENT AMBULATORY TO RESTROOM. db 08:00 GI: No deficits noted. Patient currently denies. db 08:00 Reassessment: Patient appears in no apparent distress at this time. Patient and/or db family updated on plan of care and expected duration. Pain level reassessed. Patient is alert, oriented x 3, equal unlabored respirations, skin warm/dry/pink. Vital Signs: 05:51 BP 144 / 100; Pulse 75; Resp 17 S; Temp 98.1(O); Pulse Ox 100% on R/A; Weight 108.86 kg lg3 (R); Height 5 ft. 11 in. (R); Pain 0/10; 06:50 BP 160 / 95; Pulse 75; Resp 17 S; Pulse Ox 100% on R/A; ha1 07:00 BP 160 / 95; Pulse 67; Resp 18; Pulse Ox 99% on R/A; db 05:51 Body Mass Index 33.47 (108.86 kg, 180.34 cm) lg3 05:51 Pain Scale: Adult 3 ED Course: 05:44 Patient arrived in ED. jj6 05:47 Segundo Sosa MD is Attending Physician. sp4 05:53 Triage completed. lg3 05:53 Arm band placed on right wrist. lg3 05:55 Patient has correct armband on for positive identification. lg3 05:55 Patient maintains SpO2 saturation greater than 95% on room air. lg3 07:00 Report received from Elizabeth Rosario RN. kc6 07:43 Brenda Yoon, RN is Primary Nurse. db 08:00 Provided Education on: DISCHARGE. Pulse ox on. NIBP on. db 08:00 No provider procedures requiring assistance completed. Patient did not have IV access db during this emergency room visit. Administered Medications: 06:47 Drug: Promethazine PO 25 mg PO once Route: PO; ha1 08:10 Follow up: Response: No adverse reaction db 06:47 Drug: Ondansetron PO 4 mg PO once Route: PO; ha1 08:10 Follow up: Response: No adverse reaction db 06:47 Drug: Ibuprofen PO 800 mg PO once Route: PO; ha1 08:10 Follow up: Response: No adverse reaction db 06:47 Drug: Acetaminophen PO 1000 mg PO once Route: PO; ha1 08:10 Follow up: Response: No adverse reaction db 07:55 Drug: AZITHromycin PO 500 mg PO once Route: PO; db 08:10 Follow up: Response: No adverse reaction db Medication: 08:00 VIS not applicable for this client. db Outcome: 07:51 Discharge ordered by . sp4 08:00 Discharged to home ambulatory, db 08:00 Condition: stable 08:00 Discharge instructions given to patient, Instructed on discharge instructions, follow up and referral plans. Prescriptions given X 3, 08:12 Patient left the ED. db Signatures: Margi Knapp RN RN lg3 Nancy Torrez j6 Elizabeth Rosario RN RN ha1 Campbell, Kaitlyn, RN RN kc6 Brenda Yoon RN RN db Segundo Sosa MD MD sp4
--- NOTE | 2023-08-09 07:51 | EDPHYS ---
Physician Documentation [facility] Name: Uriel Naranjo Age: 32 yrs Sex: Male : 1990 Arrival Date: 08/09/2023 Time: 05:42 Bed 6 Private MD: ED Physician Segundo Sosa HPI: 08/09 05:47 This 32 yrs old Male presents to ER via Unassigned with complaints of Flu sp4 Symptoms, Nausea/Vomiting. 07:47 42-year-old male presents with 1 week old nausea vomiting, chills, sore throat, feeling sp4 unwell. . Historical: - Allergies: 05:53 No Known Allergies; lg3 - Home Meds: 05:53 amlodipine 5 mg tablet 1 tab daily [Active]; lg3 - PMHx: 05:53 Hypertensive disorder; lg3 - PSHx: 05:53 back; lg3 - Immunization history:: Adult Immunizations up to date, Client reports receiving the 2nd dose of the Covid vaccine, Flu vaccine is not up to date. - Social history:: Smoking status: Patient denies any tobacco usage or history of. Patient uses alcohol, occasionally. Patient/guardian denies using street drugs. - Family history:: not pertinent. ROS: 07:47 Constitutional: Negative fever, positive chills, positive nausea, positive vomiting, sp4 positive fatigue, positive sore throat 07:47 All other systems are negative, Exam: 07:47 Constitutional: This is a well developed, well nourished patient who is awake, alert, sp4 and in no acute distress. Head/Face: Normocephalic, atraumatic. Eyes: Pupils equal round and reactive to light, extra-ocular motions intact. Lids and lashes normal. Conjunctiva and sclera are not injected. Cornea within normal limits. Periorbital areas with no swelling, redness, or edema. ENT: Nares patent. No nasal discharge, no septal abnormalities noted. Tympanic membranes are normal and external auditory canals are clear. Oropharynx with no redness, swelling, or masses, exudates, or evidence of obstruction, uvula midline. Mucous membranes moist. Neck: Trachea midline, no thyromegaly or masses palpated, and no cervical lymphadenopathy. Supple, full range of motion without nuchal rigidity, or vertebral point tenderness. Chest/axilla: Normal chest wall appearance and motion. Nontender with no deformity. No lesions are appreciated. Cardiovascular: Regular rate and rhythm with a normal S1 and S2. No gallops, murmurs, or rubs. Normal PMI, no JVD. No pulse deficits. Respiratory: Lungs have equal breath sounds bilaterally, clear to auscultation and percussion. No rales, rhonchi or wheezes noted. No increased work of breathing, no retractions or nasal flaring. Abdomen/GI: Soft, non-tender, with normal bowel sounds. No distension or tympany. No guarding or rebound. No evidence of tenderness throughout. Back: No spinal tenderness. No costovertebral tenderness. Skin: Warm, dry with normal turgor. Normal color with no rashes, no lesions, and no evidence of cellulitis. MS/ Extremity: Pulses equal, no cyanosis. Neurovascular intact. Full, normal range of motion. Neuro: Awake and alert, GCS 15, oriented to person, place, time, and situation. Cranial nerves II-XII grossly intact. Motor strength 5/5 in all extremities. Sensory grossly intact. Psych: Awake, alert, with orientation to person, place and time. Behavior, mood, and affect are within normal limits Vital Signs: 05:51 BP 144 / 100; Pulse 75; Resp 17 S; Temp 98.1(O); Pulse Ox 100% on R/A; Weight 108.86 kg lg3 (R); Height 5 ft. 11 in. (R); Pain 0/10; 06:50 BP 160 / 95; Pulse 75; Resp 17 S; Pulse Ox 100% on R/A; ha1 07:00 BP 160 / 95; Pulse 67; Resp 18; Pulse Ox 99% on R/A; db 05:51 Body Mass Index 33.47 (108.86 kg, 180.34 cm) lg3 05:51 Pain Scale: Adult lg3 MDM: 05:48 Patient medically screened. sp4 07:47 Differential diagnosis: gastritis, viral gastroenteritis, gastroenteritis. Data sp4 reviewed: vital signs, nurses notes, lab test result(s), Flu: positive. Consideration of Admission/Observation Escalation of care including admission/observation considered. ED course: Will treat patient for presumed bacterial pharyngitis tonsillitis. Prescribed Zithromax for the next 5 days. 08/09 05:47 Order name: SARS RAPID; Complete Time: 07:41 sp4 08/09 05:47 Order name: Influenza Screen (a \T\ B); Complete Time: 07:41 sp4 08/09 05:55 Order name: Strep; Complete Time: 07:41 lg3 08/09 06:27 Order name: Glucose, Ancillary Testing; Complete Time: 07:41 EDMS 08/09 06:27 Order name: Glucose, Ancillary Testing; Complete Time: 07:41 EDMS 08/09 06:30 Order name: Throat Culture EDMS 08/09 05:59 Order name: Accucheck Blood Glucose; Complete Time: 06:36 sp4 Administered Medications: 06:47 Drug: Promethazine PO 25 mg PO once Route: PO; ha1 08:10 Follow up: Response: No adverse reaction db 06:47 Drug: Ondansetron PO 4 mg PO once Route: PO; ha1 08:10 Follow up: Response: No adverse reaction db 06:47 Drug: Ibuprofen PO 800 mg PO once Route: PO; ha1 08:10 Follow up: Response: No adverse reaction db 06:47 Drug: Acetaminophen PO 1000 mg PO once Route: PO; ha1 08:10 Follow up: Response: No adverse reaction db 07:55 Drug: AZITHromycin PO 500 mg PO once Route: PO; db 08:10 Follow up: Response: No adverse reaction db Disposition Summary: 08/09/23 07:51 Discharge Ordered Notes: Location: Home sp4 Problem: new sp4 Symptoms: have improved sp4 Condition: Stable sp4 Diagnosis - Bacterial infection, unspecified sp4 - Acute tonsillitis, unspecified sp4 Followup: sp4 - With: Private Physician - When: 7 - 10 days - Reason: Recheck today's complaints Discharge Instructions: - Discharge Summary Sheet sp4 - Tonsillitis, [id number] sp4 Forms: - Patient Portal Instructions sp4 Prescriptions: - Ibuprofen 800 mg Oral Tablet - take 1 tablet ORAL route every 8 hours As needed take with food; 30 tablet; sp4 Refills: 0, Product Selection Permitted - Zithromax Z-Alex 250 mg Oral Tablet - take 1 tablet ORAL route as directed for 5 days Day 1 - take two (2) tablets sp4 one time. Day 2, 3, 4 , 5 take one (1) tablet once daily.; 6 tablet; Refills: 0, Product Selection Permitted - ondansetron 8 mg Oral Tablet,disintegrating - take 1 tablet ORAL route every 8 hours PRN nausea; 30 tablet; Refills: 0, sp4 Product Selection Permitted Signatures: Dispatcher [employer] Margi Peterson RN RN lg3 Elizabeth Rosario RN RN ha1 Brenda Yoon RN RN db Segundo Sosa MD MD sp4
[2023-08-09 08:23] VITALS: BP 160/95; TEMP 98.1; O2SAT 99
== END ==
LOC: ER 05:42
DX: A49.9 Bacterial infection, unspecified (principal); J03.90 Acute tonsillitis, unspecified; I10 Essential (primary) hypertension; Z11.52 Encounter for screening for COVID-19
CPT/HCPCS: 87070; 36415; 82947; 87081; 87804 ×2; 87811; Q0169; Q0162

== ENCOUNTER → 2023-09-14 | Emergency (ER) | payer OTHER ==
--- OUTSIDE RECORDS SUMMARY | 2023-09-14 20:11 | XMS REPORT | Continuity of Care Document ---
Author Name Unknown Address [address] [place] [address] thconnect Address [address] [place] [address] [address] [place] [address] Care Team Providers Care Field Technician Name Role Phone Unavailable Unavailable Unavailable Encounters Start Date/Time End Date/Time Encounter Type Admission Type Attending Clinicians Care Facility Care Department Encounter ID Source 2023-08-13 13:52:57 2023-08-13 13:52:57 Outpatient [facility] [id number] Clayton Cohn
--- NOTE | 2023-09-14 20:41 | ER ---
Nurse's Notes [facility] Name: Uriel Naranjo Age: 33 yrs Sex: Male : 1990 Arrival Date: 09/14/2023 Time: :08 Bed Waiting Private MD: Diagnosis: Presentation: 09/13 20:17 Note called pt's name in lobby and outside entrance to ER, no response. km8 20:33 Note called pt's name in lobby and outside entrance to ER, no response; Charge nurse km8 notified; Dr. Sosa notified. ED Course: 20:13 Patient arrived in ED. gm2 20:14 Segundo Sosa MD is Attending Physician. sp4 20:17 Patient's name was called from ER lobby. No response. km8 20:33 Patient's name was called from ER lobby. No response. Unable to locate patient. Will km8 disposition as left without being seen by a provider. Administered Medications: No medications were administered Outcome: 20:40 Patient left the ED. km8 Signatures: Segundo Sosa MD MD sp4 Ksenia Roe gm2 Junie Schmitz RN RN km8 Corrections: (The following items were deleted from the chart) 20:36 20:17 Patient's name was called from ER lobby. No response. km8 km8 20:41 20:33 Patient's name was called from ER lobby. No response. km8 km8
--- NOTE | 2023-09-14 20:41 | EDPHYS ---
Physician Documentation [facility] Name: Uriel Naranjo Age: 33 yrs Sex: Male : 1990 Arrival Date: 09/14/2023 Time: 20:08 Bed Waiting Private MD: ED Physician Segundo Sosa HPI: 09/13 20:14 This 33 yrs old Male presents to ER via Unassigned with complaints of Chest sp4 Tightness, Pain. 21:52 Patient has eloped from the lobby prior to medical assessment. sp4 MDM: 20:15 Patient medically screened. sp4 21:52 Differential diagnosis: acute pericarditis, anxiety, coronary artery disease chest wall sp4 pain. 21:53 Data reviewed: nurses notes. sp4 09/13 20:15 Order name: EKG; Complete Time: 20:15 sp4 09/13 20:15 Order name: EKG - Nurse/Tech sp4 Administered Medications: No medications were administered Disposition: 21:53 Chart complete. sp4 Disposition Summary: 09/14/23 20:40 Eloped Notes: Disposition: Before Triage km8 Reason: unknown km8 Signatures: Segundo Sosa MD MD sp4 Junie Schmitz RN RN km8
== END ==
LOC: ER 20:08
DX: Z02.9 Encounter for administrative examinations, unspecified (principal)

== ENCOUNTER 2023-12-05 01:50 | Emergency (ER) | payer OTHER ==
--- OUTSIDE RECORDS SUMMARY | 2023-12-05 01:53 | XMS REPORT | Continuity of Care Document ---
Author Name Unknown Address [address] [place] [address] thconnect Address [address] [place] [address] [address] [place] [address] Care Team Providers Care Earth Burner Name Role Phone Unavailable Unavailable Unavailable Encounters Start Date/Time End Date/Time Encounter Type Admission Type Attending Clinicians Care Facility Care Department Encounter ID Source 2023-08-13 13:52:57 2023-08-13 13:52:57 Outpatient [facility] [id number] Clayton Cohn
[2023-12-05] MEDS ORDERED: KETOROLAC 30 MG/ML INJ ONE (02:43)
[2023-12-05] MEDS ORDERED: predniSONE 20 MG TAB ONE ×2 (02:43→02:49)
[2023-12-05 03:08] LABS: SARS-CoV-2 Antigen CONTROL BLUE LINE VIS/BG OK; SARS-CoV-2 Antigen Rapid Res Negative (Negative)
--- NOTE | 2023-12-05 03:10 | ER ---
Nurse's Notes [facility] Name: Uriel Naranjo Age: 33 yrs Sex: Male : 1990 Arrival Date: 12/05/2023 Time: 01:50 Bed DX3 Private MD: Diagnosis: Acute maxillary sinusitis Presentation: 12/04 02:02 Chief complaint: Patient states: Face started aching really bad and I am congested. vc1 Coronavirus screen: Vaccine status: Patient reports receiving the 2nd dose of the covid vaccine. Client denies travel out of the [place] in the last 14 days. congestion, Client presents with at least one sign or symptom that may indicate coronavirus-19. Ebola Screen: Patient negative for fever greater than or equal to 101.5 degrees Fahrenheit, and additional compatible Ebola Virus Disease symptoms Patient denies exposure to infectious person. Patient denies travel to an Ebola-affected area in the 21 days before illness onset. No symptoms or risks identified at this time. Initial Sepsis Screen: Does the patient meet any 2 criteria? No. Patient's initial sepsis screen is negative. Does the patient have a suspected source of infection? No. Patient's initial sepsis screen is negative. Risk Assessment: Do you want to hurt yourself or someone else? Patient reports no desire to harm self or others. Onset of symptoms was December 04, 2023 at 08:00. 02:02 Method Of Arrival: Ambulatory vc1 02:02 Acuity: CLAUDIA 4 vc1 Triage Assessment: 02:06 General: Appears in no apparent distress. Behavior is calm, cooperative, appropriate vc1 for age. General: Appears comfortable, well groomed, well developed, well nourished. Pain: Complains of pain in face. EENT: Reports nasal congestion. Neuro: Level of Consciousness is awake, alert, obeys commands, Oriented to person, place, time, situation, Appropriate for age. Cardiovascular: Heart tones S1 S2 Patient's skin is warm and dry. Respiratory: Airway is patent Respiratory effort is even, unlabored, Respiratory pattern is regular, symmetrical, Breath sounds are clear. GI: No deficits noted. No signs and/or symptoms were reported involving the gastrointestinal system. Bowel sounds present X 4 quads. : No deficits noted. No signs and/or symptoms were reported regarding the genitourinary system. Derm: Skin is intact, is healthy with good turgor, Skin is dry, Skin is normal, Skin temperature is warm. Musculoskeletal: No deficits noted. No signs and/or symptoms reported regarding the musculoskeletal system. Historical: - Allergies: 02:04 No Known Allergies; vc1 - Home Meds: 02:04 losartan oral [Active]; vc1 - PMHx: 02:04 Hypertensive disorder; vc1 - PSHx: 02:04 back; vc1 - Immunization history:: Client reports receiving the 2nd dose of the Covid vaccine, Flu vaccine is not up to date. - Infectious Disease History:: Denies. - Social history:: Smoking status: Patient denies any tobacco usage or history of. Screenin:07 [facility] ED Fall Risk Assessment (Adult) History of falling in the last 3 months, vc1 including since admission No falls in past 3 months (0 pts) Confusion or Disorientation No (0 pts) Intoxicated or Sedated No (0 pts) Impaired Gait No (0 pts) Mobility Assist Device Used No (0 pt) Altered Elimination No (0 pt) Score/Fall Risk Level 0 - 2 = Low Risk Oriented to surroundings, Maintained a safe environment, Educated pt \T\ family on fall prevention, incl call for assistance when getting out of bed. Abuse screen: Denies threats or abuse. Nutritional screening: No deficits noted. Tuberculosis screening: No symptoms or risk factors identified. Assessment: 03:13 Reassessment: See triage assessment. vc1 Vital Signs: 02:02 BP 143 / 95; Pulse 104; Resp 16; Temp 98.5; Pulse Ox 98% ; Weight 104.33 kg; Height 5 vc1 ft. 11 in. ; 02:02 Body Mass Index 32.08 (104.33 kg, 180.34 cm) vc1 ED Course: 01:55 Patient arrived in ED. gm2 01:55 Michael Sears MD is Attending Physician. ec2 02:04 Triage completed. vc1 02:05 Arm band placed on right wrist. vc1 02:06 SARS RAPID Sent. vk 02:06 Influenza Screen (a \T\ B) Sent. vk 02:07 COVID swab sent to lab. Flu and/or RSV swab sent to lab. vk 02:08 Patient has correct armband on for positive identification. Bed in low position. Call vc1 light in reach. Pulse ox on. NIBP on. 03:13 Leigh Mckeon, RN is Primary Nurse. vc1 03:14 Provided Education on: After ER care. vc1 03:14 No provider procedures requiring assistance completed. Patient did not have IV access vc1 during this emergency room visit. Administered Medications: 02:52 Drug: Ketorolac IM 15 mg IM once Route: IM; Site: right deltoid; vc1 03:14 Follow up: Response: No adverse reaction; Marked relief of symptoms vc1 02:52 Drug: predniSONE PO 40 mg PO once Route: PO; vc1 03:14 Follow up: Response: No adverse reaction vc1 Medication: 02:08 VIS not applicable for this client. vc1 Outcome: 03:09 Discharge ordered by . ec2 03:14 Discharged to home ambulatory, vc1 03:14 Condition: good 03:14 Discharge instructions given to patient, Instructed on discharge instructions, follow up and referral plans. medication usage, Demonstrated understanding of instructions, follow-up care, medications, Prescriptions given X 1, 03:15 Patient left the ED. vc1 Signatures: Leigh Mckeon RN RN vc1 Michael Sears MD MD ec2 Ksenia Roe Alessandra Hernandez
--- NOTE | 2023-12-05 03:10 | EDPHYS ---
Physician Documentation [facility] Name: Uriel Naranjo Age: 33 yrs Sex: Male : 1990 Arrival Date: 12/05/2023 Time: 01:50 Bed DX3 Private MD: ED Physician Michael Sears HPI: 12/04 02:15 This 33 yrs old Male presents to ER via Ambulatory with complaints of Flu ec2 Symptoms, Congestion. 02:15 Patient arrives today for sinus pain. Patient reports 2 days of symptoms. Patient ec2 reports no fevers or chills, no nausea or vomiting, no history of p.o. intake, no issues with diarrhea. Patient denies any cough or difficulty breathing. Patient reports that he has frontal maxillary pain.. Historical: - Allergies: 02:04 No Known Allergies; vc1 - Home Meds: 02:04 losartan oral [Active]; vc1 - PMHx: 02:04 Hypertensive disorder; vc1 - PSHx: 02:04 back; vc1 - Immunization history:: Client reports receiving the 2nd dose of the Covid vaccine, Flu vaccine is not up to date. - Infectious Disease History:: Denies. - Social history:: Smoking status: Patient denies any tobacco usage or history of. ROS: 02:15 Constitutional: as per hpi ec2 Exam: 02:15 Constitutional: GEN: NAD Head: atraumatic Eyes: EOMI Ears: External ears are normal. ec2 Face: TTP to the maxillary sinus bilaterally. Mouth: No posterior pharyngeal erythema or exudates appreciated. CV: regular rate LUNGS: no respiratory distress ABD: non-distended SKIN: no evidence of rashes MSK: no evidence of trauma NEURO: moves all extremities equally Vital Signs: 02:02 BP 143 / 95; Pulse 104; Resp 16; Temp 98.5; Pulse Ox 98% ; Weight 104.33 kg; Height 5 vc1 ft. 11 in. ; 02:02 Body Mass Index 32.08 (104.33 kg, 180.34 cm) vc1 MDM: 01:55 Patient medically screened. ec2 02:15 Data reviewed: vital signs. ED course: Patient arrives today for evaluation of facial ec2 pain. Examination remarkable for sinus tenderness. Given 2 days of symptoms, suspect viral infection. Sent flu and COVID testing. Differential diagnosis includes viral sinusitis, bacterial sinusitis, doubt maxillary abscess.. 02:17 ED course: Given the duration of the symptoms, would not be appropriate for bacterial ec2 coverage.. 03:09 ED course: Flu and COVID testing negative. Suspect viral sinusitis. Will discharge ec2 home. Return precautions given.. 03:12 ED course: MDM: Differential diagnosis as documented above in ED course; All lab tests ec2 ordered and reviewed as documented above; . 12/04 01:59 Order name: Influenza Screen (a \T\ B); Complete Time: 03:09 ec2 12/04 01:59 Order name: SARS RAPID; Complete Time: 03:09 ec2 Administered Medications: 02:52 Drug: Ketorolac IM 15 mg IM once Route: IM; Site: right deltoid; vc1 03:14 Follow up: Response: No adverse reaction; Marked relief of symptoms vc1 02:52 Drug: predniSONE PO 40 mg PO once Route: PO; vc1 03:14 Follow up: Response: No adverse reaction vc1 Disposition Summary: 12/05/23 03:09 Discharge Ordered Notes: Location: Home ec2 Condition: Stable ec2 Diagnosis - Acute maxillary sinusitis ec2 Followup: ec2 - With: Private Physician - When: - Reason: Re-evaluation by your physician Discharge Instructions: - Discharge Summary Sheet ec2 - Sinusitis, Adult, Mulf-gy-Shir ec2 Forms: - Work release form ec2 - Medication Reconciliation Form ec2 - Antibiotic Education ec2 - Prescription Opioid Use ec2 - Patient Portal Instructions ec2 - Leadership Thank You Letter ec2 Prescriptions: - Prednisone 20 mg Oral Tablet - take 2 tablets ORAL route once daily for 5 days; 10 tablet; Refills: 0, Product ec2 Selection Permitted Signatures: Dispatcher [employer] EDMT Leigh Mckeon RN RN vc1 Michael Sears MD MD ec2 Corrections: (The following items were deleted from the chart) 02:00 02:00 Influenza Screen (A \T\ B)+BA.LAB.BRZ ordered. EDMS EDMS 02:00 02:00 SARS-COV-2 Antigen Rapid+I.LAB.BRZ ordered. EDMS EDMS
[2023-12-05 03:35] VITALS: BP 143/95; TEMP 98.5; O2SAT 98
== END 2023-12-05 03:15 | disposition home or self-care (01) ==
LOC: ER 01:50
DX: J01.00 Acute maxillary sinusitis, unspecified (principal); Z11.52 Encounter for screening for COVID-19
CPT/HCPCS: 36415; 87804 ×2; 96372; 99284; 87811; J7512

== ENCOUNTER 2024-07-09 15:16 | Emergency (ER) | payer OTHER ==
--- OUTSIDE RECORDS SUMMARY | 2024-07-09 15:18 | XMS REPORT | Continuity of Care Document ---
Author Name Unknown Address [address] [place] [address] [address] [employer] Address [address] [place] [address] [address] [place] [address] Care Team Providers Care Datastage Consultant Name Role Phone Unavailable Unavailable Unavailable Encounters Start Date/Time End Date/Time Encounter Type Admission Type Attending Clinicians [facility] Care Department Encounter ID Source 2023-12-25 08:29:27 2023-12-25 08:29:27 Outpatient [facility] [id number] Clayton Cohn 2023-08-13 13:52:57 2023-08-13 13:52:57 Outpatient [facility] [id number] Clayton Cohn
[2024-07-09] MEDS ORDERED: KETOROLAC 30 MG/ML INJ ONE (16:57)
[2024-07-09] MEDS ORDERED: ACETAMINOPHEN 500 MG TAB ONE (16:57)
[2024-07-09 17:00] LABS: Absolute Eosinophils 0.5 K/uL (0-0.5); Absolute Monocytes 0.7 K/uL (0.1-1.3); Absolute Neutrophil 3.9 K/uL (1.8-8.0); Basophils % 0.7 % (0-1.3); Eosinophils % 6.6 % (0-4.4); Hematocrit 45.9 % (39.6-49.0); Hemoglobin 15.1 g/dL (13.6-17.9); Lymphocytes % 28.1 % (15.3-44.8); MCH 28.8 pg (27.0-35.0); MCHC 32.9 g/dL (32.0-36.0); MCV 87.5 fL (80-100); MPV 8.7 fL (7.6-11.3); Monocytes % 9.6 % (3.3-12.3); Nucleated Red Blood Cells % 0.1 % (0-0); Platelets 295 thou/uL (152-406); RBC Red Blood Cell Count 5.25 M/uL (4.33-5.43); Red Cell Distribution Width 14.3 % (12.1-15.2)
[2024-07-09 17:15] LABS: Anion Gap 8.7 mEq/L (5.0-15.0); Potassium 3.7 mEq/L (3.5-5.1)
--- NOTE | 2024-07-09 17:38 | ER ---
Nurse's Notes [facility] Name: Uriel Naranjo Age: 33 yrs Sex: Male : 1990 Arrival Date: 07/09/2024 Time: 15:16 Bed 16 Private MD: Diagnosis: Palmar Rash Presentation: 07/09 15:32 Chief complaint: Patient states: Rash on hands bilat that was noticed yesterday rs5 morning. Coronavirus screen: At this time, the client does not indicate any symptoms associated with coronavirus-19. Ebola Screen: No symptoms or risks identified at this time. Initial Sepsis Screen: Does the patient meet any 2 criteria? No. Patient's initial sepsis screen is negative. Does the patient have a suspected source of infection? No. Patient's initial sepsis screen is negative. Risk Assessment: Do you want to hurt yourself or someone else? Patient reports no desire to harm self or others. Onset of symptoms was July 08, 2024. 15:32 Method Of Arrival: Ambulatory rs5 15:32 Acuity: CLAUDIA 3 rs5 Historical: - Allergies: 15:34 No Known Allergies; rs5 - PMHx: 15:34 Hypertensive disorder; rs5 - PSHx: 15:34 back; rs5 - Immunization history:: Adult Immunizations up to date. - Infectious Disease History:: Denies. - Social history:: Smoking status: Patient denies any tobacco usage or history of. Screenin:04 [facility] ED Fall Risk Assessment (Adult) History of falling in the last 3 months, le1 including since admission No falls in past 3 months (0 pts) Confusion or Disorientation No (0 pts) Intoxicated or Sedated No (0 pts) Impaired Gait No (0 pts) Mobility Assist Device Used No (0 pt) Altered Elimination No (0 pt) Score/Fall Risk Level 0 - 2 = Low Risk Oriented to surroundings, Maintained a safe environment, Educated pt \T\ family on fall prevention, incl call for assistance when getting out of bed, Assessed \T\ reinforced patient's understanding of fall precautions, Hourly rounding (assess needs \T\ fall precautionary measures) done. Abuse screen: Denies threats or abuse. Denies injuries from another. Nutritional screening: No deficits noted. Tuberculosis screening: No symptoms or risk factors identified. Assessment: 17:02 General: Appears in no apparent distress. comfortable, Behavior is calm, cooperative. le1 Pain: Complains of pain in right hand and left hand Pain currently is 3 out of 10 on a pain scale. Quality of pain is described as burning. Neuro: No deficits noted. Cardiovascular: No deficits noted. Respiratory: No deficits noted. GI: No deficits noted. : No deficits noted. EENT: No deficits noted. Derm: Rash noted that is red, on right hand and left hand. Vital Signs: 15:32 BP 158 / 99; Pulse 77; Resp 17; Pulse Ox 99% on R/A; Weight 102.06 kg; rs5 17:47 BP 144 / 110; Pulse 71; Resp 16; Temp 98.7(O); Pulse Ox 100% ; Pain 0/10; le1 17:47 Pain Scale: Adult le1 ED Course: 15:19 Patient arrived in ED. im 15:19 Michael Sears MD is Attending Physician. tm6 15:34 Triage completed. rs5 16:26 Viviana Brock, RN is Primary Nurse. le1 16:54 Rpr Sent. le1 16:54 BMP Sent. le1 16:54 CBC with Diff Sent. le1 17:03 Initial lab(s) drawn, by ia, sent to lab. Inserted saline lock: 20 gauge in left le1 antecubital area, using aseptic technique. Blood collected. Flushed with 10 mL NS. 17:04 Patient has correct armband on for positive identification. Bed in low position. Call le1 light in reach. Side rails up X 1. Provided Education on: Patient to use call light if needing assistance. 17:48 No provider procedures requiring assistance completed. IV discontinued, intact, le1 bleeding controlled, No redness/swelling at site. Pressure dressing applied. 17:48 Patient notified of wait time. le1 Administered Medications: 17:02 Drug: Ketorolac IVP 15 mg IVP once Route: IVP; Site: left antecubital; le1 17:49 Follow up: Response: Pain is decreased le1 17:02 Drug: Acetaminophen PO 1000 mg PO once Route: PO; le1 17:49 Follow up: Response: Pain is decreased le1 Medication: 17:49 VIS not applicable for this client. le1 Outcome: 17:37 Discharge ordered by . ec2 17:48 Discharged to home ambulatory, le1 17:48 Condition: improved 17:48 Discharge instructions given to patient, Instructed on discharge instructions, follow up and referral plans. medication usage, Demonstrated understanding of instructions, follow-up care, medications, Prescriptions given X 1, 17:50 Patient left the ED. le1 Signatures: Cristian Whipple, RN RN rs5 Mary Khan Edwin, MD MD ec2 Shana Schaefer RN RN tm6 Viviana Brock RN RN le1 Corrections: (The following items were deleted from the chart) 15:34 15:32 BP 158 / 99; Pulse 77bpm; Resp 17bpm; Pulse Ox 99% RA; rs5 rs5
--- NOTE | 2024-07-09 17:38 | EDPHYS ---
Physician Documentation [facility] Name: Uriel Naranjo Age: 33 yrs Sex: Male : 1990 Arrival Date: 07/09/2024 Time: 15:16 Bed 16 Private MD: ED Physician Michael Sears HPI: 07/09 15:54 This 33 yrs old Male presents to ER via Ambulatory with complaints of Rash - ec2 on hands, Hand Pain. 15:54 Patient arrives today for evaluation of a rash on the bilateral hands. Reports that ec2 this started yesterday, is having multiple painful lesions. No fevers or chills or nausea or vomiting. Reports he recently got over a URI several days ago with cough and cold and congestion symptoms with myalgias as well. Patient reports no significant outdoor activity. Reports no penile discharge, denies any history of eczema. No history of IV drug use. Historical: - Allergies: 15:34 No Known Allergies; rs5 - PMHx: 15:34 Hypertensive disorder; rs5 - PSHx: 15:34 back; rs5 - Immunization history:: Adult Immunizations up to date. - Infectious Disease History:: Denies. - Social history:: Smoking status: Patient denies any tobacco usage or history of. ROS: 15:55 Constitutional: as per hpi ec2 Exam: 15:55 Constitutional: GEN: NAD Head: atraumatic Eyes: EOMI Ears: External ears are ec2 normal. CV: regular rate LUNGS: no respiratory distress ABD: non-distended SKIN: Multiple flat small less than half centimeter painful lesions throughout the bilateral palms, no feet involvement, no perioral or oropharynx involvement MSK: no evidence of trauma Vital Signs: 15:32 BP 158 / 99; Pulse 77; Resp 17; Pulse Ox 99% on R/A; Weight 102.06 kg; rs5 17:47 BP 144 / 110; Pulse 71; Resp 16; Temp 98.7(O); Pulse Ox 100% ; Pain 0/10; le1 17:47 Pain Scale: Adult le1 MDM: 15:38 Medical Screening Exam initiated ec2 15:55 Data reviewed: vital signs, nurses notes. ED course: Patient arrives today for ec2 evaluation of lesions to the bilateral hands. Examination yields skin findings as above. Differential diagnosis considered includes processes such as endocarditis, syphilis, tickborne disease, contact dermatitis, late-hqos-erj-mouth syndrome. 07/09 15:52 Order name: CBC with Diff; Complete Time: 17:16 ec2 07/09 15:52 Order name: BMP; Complete Time: 17:16 ec2 07/09 15:52 Order name: Rpr ec2 07/09 15:52 Order name: IV; Complete Time: 16:54 ec2 Administered Medications: 17:02 Drug: Ketorolac IVP 15 mg IVP once Route: IVP; Site: left antecubital; le1 17:49 Follow up: Response: Pain is decreased le1 17:02 Drug: Acetaminophen PO 1000 mg PO once Route: PO; le1 17:49 Follow up: Response: Pain is decreased le1 Disposition Summary: 07/09/24 17:37 Discharge Ordered Notes: Location: Home ec2 Condition: Stable ec2 Diagnosis - Palmar Rash ec2 Followup: ec2 - With: Private Physician - When: - Reason: Re-evaluation by your physician Discharge Instructions: - Discharge Summary Sheet ec2 - Rash, Adult, Gnij-lz-Znst ec2 Forms: - Medication Reconciliation Form ec2 - Antibiotic Education ec2 - Prescription Opioid Use ec2 - Patient Portal Instructions ec2 - Leadership Thank You Letter ec2 Prescriptions: - Hydrocortisone 0.5 % Topical Cream - apply 1 application TOPICAL route every 12 hours As needed; 30 gram; Refills: ec2 0, Product Selection Permitted Signatures: Dispatcher [employer] Cristian Campo RN RN rs5 Michael Sears MD MD ec2 Viviana Brock RN RN le1 Corrections: (The following items were deleted from the chart) 16:00 15:55 ED course: Patient arrives today for evaluation of lesions to the bilateral ec2 hands. Examination yields skin findings as above. Differential diagnosis considered includes processes such as IV drug use, syphilis,. ec2 16:02 15:55 ED course: Patient arrives today for evaluation of lesions to the bilateral ec2 hands. Examination yields skin findings as above. Differential diagnosis considered includes processes such as endocarditis, syphilis, tickborne disease.. ec2 16:06 15:55 Constitutional: GEN: NAD Head: atraumatic Eyes: EOMI Ears: External ears are ec2 normal. CV: regular rate LUNGS: no respiratory distress ABD: non-distended SKIN: Multiple flat small less than half centimeter painful lesions throughout the bilateral palms MSK: no evidence of trauma ec2
[2024-07-09 19:35] VITALS: BP 144/110; TEMP 98.7; O2SAT 100
[2024-07-09 23:30] LABS: RPR (Rapid Plasma Reagin) NON-REACT (NON-REACT)
== END 2024-07-09 17:50 | disposition home or self-care (01) ==
LOC: ER 15:16
DX: R21 Rash and other nonspecific skin eruption (principal)
CPT/HCPCS: 36415; 80048; 85025; 86592; 86593; 96374; 99284